=== PATIENT | male | born 1965 | race Caucasian/White ===

== ENCOUNTER 2016-04-30 12:42 | Inpatient (IN) | payer MEDICAID ==
[~2016-04-30] VITALS: Ht 165.1 cm; Wt 79.4 kg
[2016-04-30] MEDS ORDERED: ASPI81TA2 PO (12:54)
[2016-04-30 14:13] LABS: BASOPHILS % (AUTO) 0.7 % (0.0-2.0); HEMATOCRIT 45.9 % (41-53); HEMOGLOBIN 15.1 g/dL (13.5-17.5); LYMPHOCYTES # (AUTO) 1.8 K/uL (1.0-4.8); LYMPHOCYTES % (AUTO) 20.6 % (22.0-44.0); MEAN CORPUSCULAR HGB CONC 32.8 G/dL (31.0-37.0); MEAN CORPUSCULAR VOLUME 88 fL (80-100); MONOCYTES # (AUTO) 0.6 K/uL (0.1-1.0); MONOCYTES % (AUTO) 6.9 % (2.0-9.0); NEUTROPHILS # (AUTO) 6.1 K/uL (1.8-7.7); NEUTROPHILS % (AUTO) 70.8 % (40.0-70.0); PLATELET COUNT (AUTO) 214 K/uL (150-450); RED BLOOD CELL COUNT(AUTO) 5.19 MIL/uL (4.50-5.90); RED CELL DISTRIBUTION WIDTH 13.3 % (11.5-14.5); WHITE BLOOD COUNT (AUTO) 8.7 K/uL (4.5-11.0)
[2016-04-30 14:24] LABS: ANION GAP 12 mmol/L (8-16); CALCIUM, TOTAL 9.5 mg/dL (8.8-10.5); CARBON DIOXIDE 25 mmol/L (22-29); CHLORIDE 101 mmol/L (98-107); GLOMERULAR FILTR. RATE CALC > 60 mL/min (>60); POTASSIUM 3.8 mmol/L (3.5-5.1); SODIUM SERUM 138 mmol/L (136-145); UREA NITROGEN, BLOOD 16 mg/dL (7-18)
[2016-04-30 14:29] LABS: ALANINE AMINOTRANSFERASE 180 U/L (12-78); ALBUMIN 4.3 g/dL (3.4-5.0); ASPARTATE AMINOTRANSFERASE 44 U/L (15-37); BILIRUBIN,TOTAL 0.3 mg/dL (0.1-1.0); TOTAL PROTEIN, SERUM 8.1 g/dL (6.4-8.2)
[2016-04-30] MEDS ORDERED: NITROGLYCERIN 2% (1 GM=INCH) PACKET TP ONE (16:00)
[2016-04-30] MEDS ORDERED: ACETAMINOPHEN 325 MG TABLET PO PRN ×2 (16:45→20:15)
[2016-04-30 20:07] VITALS: BP 137/84
[2016-04-30] MEDS ORDERED: SIMVASTATIN 20 MG TABLET PO SCH (20:15)
[2016-04-30] MEDS ORDERED: OxyCODONE HCL/ACETAMINOPHEN 5-325 MG TABLET PO PRN (20:15)
[2016-04-30] MEDS ORDERED: MAGNESIUM HYDROXIDE SUSPENSION 30 ML UDCUP PO PRN (20:15)
[2016-04-30] MEDS ORDERED: ZOLPIDEM TARTRATE 5 MG TABLET PO PRN (20:15)
[2016-04-30] MEDS: DOCUSATE SODIUM 100 MG CAPSULE PO SCH (20:57)
[2016-04-30] MEDS: ASPIRIN 81 MG CHEWABLE TABLET PO SCH (20:57)
[2016-04-30] MEDS: PANTOPRAZOLE SODIUM 40 MG DR TABLET PO SCH (20:57)
[2016-04-30] MEDS ORDERED: INFLUENZA VIRUS VACCINE QVS 2016-17 (3YR+)/PF 60 MCG/0.5 ML SYRINGE IM ONE (22:30)
[2016-05-01] VITALS (16 sets, daily range): BP systolic 117–149; BP diastolic 59–92
[2016-05-01] MEDS ORDERED: HEPARIN SODIUM 25000 UNITS/D5W 250 ML IV PRN (01:44)
[2016-05-01] MEDS ORDERED: HEPARIN SODIUM,PORCINE 5,000 UNITS/ML VIAL IVP ONE ×3 (01:45→13:30)
[2016-05-01] MEDS ORDERED: HEPARIN SODIUM,PORCINE 5,000 UNITS/ML VIAL IVP PRN ×2 (01:45)
[2016-05-01 02:50] LABS: INR 1.1 (0.9-1.1); PROTHROMBIN TIME 11.4 SEC (9.4-11.6)
[2016-05-01] MEDS ORDERED: METOPROLOL TARTRATE 25 MG TABLET PO SCH (09:00)
[2016-05-01] MEDS ORDERED: LISINOPRIL 5 MG TABLET PO SCH (09:00)
[2016-05-01] MEDS ORDERED: SIMVASTATIN 20 MG TABLET PO SCH (09:00)
[2016-05-01] MEDS: PANTOPRAZOLE SODIUM 40 MG DR TABLET PO SCH (09:02)
[2016-05-01] MEDS: DOCUSATE SODIUM 100 MG CAPSULE PO SCH ×2 (09:02→21:11)
[2016-05-01] MEDS: ASPIRIN 81 MG CHEWABLE TABLET PO SCH (09:54)
[2016-05-01] MEDS ORDERED: SODIUM BICARBONATE 50 MEQ/50 ML VIAL ONE (12:13)
[2016-05-01] MEDS ORDERED: LIDOCAINE HCL/PF 1% 30 ML VIAL ONE (12:13)
[2016-05-01] MEDS ORDERED: HEPARIN SODIUM 1000 UNITS/NS 1,000 ML ONE (12:14)
[2016-05-01] MEDS ORDERED: IOHEXOL 300 MG/ML 150 ML VIAL ONE (12:14)
[2016-05-01] MEDS ORDERED: HEPARIN SODIUM 2,000 UNITS in HEPARIN SODIUM 1000 UNITS/NS 1,000 ML IARTER ONE (12:54)
[2016-05-01] MEDS ORDERED: SODIUM CHLORIDE 0.9% 500 ML IV ONE (12:54)
[2016-05-01] MEDS ORDERED: IOHEXOL 300 MG/ML 150 ML VIAL IARTER ONE (13:00)
[2016-05-01] MEDS ORDERED: ASPIRIN 325 MG TABLET PO ONE (13:00)
[2016-05-01] MEDS ORDERED: TICAGRELOR 90 MG TABLET PO ONE (13:00)
[2016-05-01] MEDS ORDERED: LIDOCAINE 1% 30 ML/SOD BICARB 8.4% 4 ML SQ ONE (13:00)
[2016-05-01] MEDS ORDERED: IOHEXOL 300 MG/ML 100 ML VIAL ONE ×2 (13:02→13:32)
[2016-05-01] MEDS ORDERED: IOHEXOL 300 MG/ML 50 ML VIAL ONE (13:02)
[2016-05-01] MEDS ORDERED: VERAPAMIL HCL 2.5 MG/ML 2 ML VIAL ONE (13:02)
[2016-05-01] MEDS ORDERED: NITROGLYCERIN 50 MG/D5% WATER 250 ML ONE (13:03)
[2016-05-01] MEDS ORDERED: TICAGRELOR 90 MG TABLET ONE (13:05)
[2016-05-01] MEDS ORDERED: ASPIRIN 81 MG CHEWABLE TABLET ONE (13:05)
[2016-05-01] MEDS ORDERED: MIDAZOLAM HCL 2 MG/2 ML VIAL ONE (13:14)
[2016-05-01] MEDS ORDERED: FentaNYL CITRATE-PF 100 MCG/2 ML VIAL ONE (13:14)
[2016-05-01] MEDS ORDERED: MIDAZOLAM HCL 2 MG/2 ML VIAL IVP ONE (13:30)
[2016-05-01] MEDS ORDERED: FentaNYL CITRATE-PF 100 MCG/2 ML VIAL IVP ONE (13:30)
[2016-05-01] MEDS ORDERED: IOHEXOL 300 MG/ML 100 ML VIAL IARTER ONE ×2 (13:45)
[2016-05-01] MEDS ORDERED: NITROGLYCERIN/D5W 50 MG/250 ML IV BOTTLE ICOR ONE (13:45)
[2016-05-01] MEDS ORDERED: VERAPAMIL HCL 2.5 MG/ML 2 ML VIAL ICOR ONE (13:45)
[2016-05-01] MEDS ORDERED: IOHEXOL 300 MG/ML 50 ML VIAL IARTER ONE (13:45)
[2016-05-01 17:48] LABS: CREATINE KINASE MB 6.5 ng/mL (0-5)
[2016-05-01] MEDS: LISINOPRIL 10 MG TABLET PO SCH (21:11)
[2016-05-01] MEDS: TICAGRELOR 90 MG TABLET PO SCH (21:11)
[2016-05-01] MEDS: ATORVASTATIN CALCIUM 40 MG TABLET PO SCH (21:11)
[2016-05-01] MEDS: METOPROLOL SUCCINATE 25 MG ER TABLET PO SCH (21:11)
[2016-05-02] VITALS: BP 114/66
[2016-05-02 04:00] VITALS: BP 110/66
[2016-05-02 06:44] LABS: ALANINE AMINOTRANSFERASE 176 U/L (12-78); ALBUMIN 3.9 g/dL (3.4-5.0); ANION GAP 10 mmol/L (8-16); ASPARTATE AMINOTRANSFERASE 51 U/L (15-37); BILIRUBIN,TOTAL 0.8 mg/dL (0.1-1.0); CALCIUM, TOTAL 9.1 mg/dL (8.8-10.5); CARBON DIOXIDE 26 mmol/L (22-29); CHLORIDE 103 mmol/L (98-107); CHOL/HDL RATIO 6.1 (4.2-7.3); CREATINE KINASE MB 2.8 ng/mL (0-5); CREATINE KINASE, TOTAL 112 U/L (39-308); CREATININE 0.97 mg/dL (0.60-1.30); GLOMERULAR FILTR. RATE CALC > 60 mL/min (>60); POTASSIUM 4.3 mmol/L (3.5-5.1); SODIUM SERUM 139 mmol/L (136-145); TOTAL PROTEIN, SERUM 7.6 g/dL (6.4-8.2); UREA NITROGEN, BLOOD 14 mg/dL (7-18)
[2016-05-02 06:48] LABS: HEMOGLOBIN A1C 6.5 % (4.5-6.2)
[2016-05-02 08:00] VITALS: BP 113/69
[2016-05-02] MEDS: PANTOPRAZOLE SODIUM 40 MG DR TABLET PO SCH (08:47)
[2016-05-02] MEDS: DOCUSATE SODIUM 100 MG CAPSULE PO SCH ×2 (08:47→20:15)
[2016-05-02] MEDS: ASPIRIN 81 MG CHEWABLE TABLET PO SCH (08:47)
[2016-05-02] MEDS: TICAGRELOR 90 MG TABLET PO SCH ×2 (08:47→20:15)
[2016-05-02 12:00] VITALS: BP 135/92
[2016-05-02 16:00] VITALS: BP 118/69
[2016-05-02 20:00] VITALS: BP 114/68
[2016-05-02] MEDS: LISINOPRIL 10 MG TABLET PO SCH (20:15)
[2016-05-02] MEDS: ATORVASTATIN CALCIUM 40 MG TABLET PO SCH (20:15)
[2016-05-02] MEDS: METOPROLOL SUCCINATE 25 MG ER TABLET PO SCH (20:15)
[2016-05-03] VITALS: BP 108/63
[2016-05-03 04:00] VITALS: BP 111/78
[2016-05-03 06:25] LABS: ALANINE AMINOTRANSFERASE 157 U/L (12-78); ANION GAP 6 mmol/L (8-16); ASPARTATE AMINOTRANSFERASE 38 U/L (15-37); BILIRUBIN,TOTAL 0.8 mg/dL (0.1-1.0); CALCIUM, TOTAL 9.5 mg/dL (8.8-10.5); CARBON DIOXIDE 28 mmol/L (22-29); CHLORIDE 107 mmol/L (98-107); CREATININE 1.04 mg/dL (0.60-1.30); GLOMERULAR FILTR. RATE CALC > 60 mL/min (>60); POTASSIUM 5.4 mmol/L (3.5-5.1); SODIUM SERUM 141 mmol/L (136-145); UREA NITROGEN, BLOOD 16 mg/dL (7-18)
[2016-05-03 06:43] LABS: BASOPHILS % (AUTO) 0.4 % (0.0-2.0); EOSINOPHILS % (AUTO) 3.1 % (1.0-6.0); HEMATOCRIT 48.9 % (41-53); HEMOGLOBIN 15.9 g/dL (13.5-17.5); LYMPHOCYTES # (AUTO) 2.4 K/uL (1.0-4.8); LYMPHOCYTES % (AUTO) 26.2 % (22.0-44.0); MEAN CORPUSCULAR HEMOGLOBIN 29.2 pg (26.0-34.0); MEAN CORPUSCULAR HGB CONC 32.5 G/dL (31.0-37.0); MEAN CORPUSCULAR VOLUME 90 fL (80-100); MONOCYTES # (AUTO) 0.9 K/uL (0.1-1.0); MONOCYTES % (AUTO) 10.1 % (2.0-9.0); NEUTROPHILS # (AUTO) 5.5 K/uL (1.8-7.7); NEUTROPHILS % (AUTO) 60.2 % (40.0-70.0); PLATELET COUNT (AUTO) 224 K/uL (150-450); RED BLOOD CELL COUNT(AUTO) 5.45 MIL/uL (4.50-5.90); RED CELL DISTRIBUTION WIDTH 13.5 % (11.5-14.5); WHITE BLOOD COUNT (AUTO) 9.1 K/uL (4.5-11.0)
[2016-05-03 08:00] VITALS: BP 124/62
[2016-05-03] MEDS: DOCUSATE SODIUM 100 MG CAPSULE PO SCH ×2 (08:44→21:45)
[2016-05-03] MEDS: TICAGRELOR 90 MG TABLET PO SCH ×2 (08:44→21:46)
[2016-05-03] MEDS: PANTOPRAZOLE SODIUM 40 MG DR TABLET PO SCH (08:44)
[2016-05-03] MEDS: ASPIRIN 81 MG CHEWABLE TABLET PO SCH (08:44)
[2016-05-03] MEDS ORDERED: 0.9% SODIUM CHLORIDE 10 ML SYRINGE IVP PRN (10:30)
[2016-05-03 11:06] VITALS: BP 122/81
[2016-05-03 15:52] VITALS: BP 114/72
[2016-05-03 19:41] VITALS: BP 135/79
[2016-05-03] MEDS: METOPROLOL SUCCINATE 25 MG ER TABLET PO SCH (21:45)
[2016-05-03] MEDS: ATORVASTATIN CALCIUM 40 MG TABLET PO SCH (21:46)
[2016-05-03] MEDS: LISINOPRIL 10 MG TABLET PO SCH (21:46)
[2016-05-04] VITALS (12 sets, daily range): BP systolic 108–132; BP diastolic 57–82
[2016-05-04 06:40] LABS: BASOPHILS % (AUTO) 0.4 % (0.0-2.0); EOSINOPHILS % (AUTO) 2.8 % (1.0-6.0); HEMATOCRIT 48.8 % (41-53); HEMOGLOBIN 16.2 g/dL (13.5-17.5); LYMPHOCYTES % (AUTO) 20.6 % (22.0-44.0); MEAN CORPUSCULAR HEMOGLOBIN 29.3 pg (26.0-34.0); MEAN CORPUSCULAR HGB CONC 33.1 G/dL (31.0-37.0); MEAN CORPUSCULAR VOLUME 89 fL (80-100); MONOCYTES # (AUTO) 0.6 K/uL (0.1-1.0); MONOCYTES % (AUTO) 6.6 % (2.0-9.0); NEUTROPHILS # (AUTO) 6.8 K/uL (1.8-7.7); NEUTROPHILS % (AUTO) 69.6 % (40.0-70.0); PLATELET COUNT (AUTO) 216 K/uL (150-450); RED BLOOD CELL COUNT(AUTO) 5.51 MIL/uL (4.50-5.90); RED CELL DISTRIBUTION WIDTH 13.6 % (11.5-14.5); WHITE BLOOD COUNT (AUTO) 9.7 K/uL (4.5-11.0)
[2016-05-04 07:01] LABS: ALANINE AMINOTRANSFERASE 156 U/L (12-78); ALBUMIN 3.9 g/dL (3.4-5.0); ANION GAP 10 mmol/L (8-16); ASPARTATE AMINOTRANSFERASE 42 U/L (15-37); BILIRUBIN,TOTAL 0.8 mg/dL (0.1-1.0); CALCIUM, TOTAL 9.3 mg/dL (8.8-10.5); CARBON DIOXIDE 25 mmol/L (22-29); CHLORIDE 101 mmol/L (98-107); CREATININE 1.06 mg/dL (0.60-1.30); GLOMERULAR FILTR. RATE CALC > 60 mL/min (>60); POTASSIUM 5.1 mmol/L (3.5-5.1); SODIUM SERUM 136 mmol/L (136-145); UREA NITROGEN, BLOOD 18 mg/dL (7-18)
[2016-05-04] MEDS: ASPIRIN 81 MG CHEWABLE TABLET PO SCH ×2 (09:00→16:09)
[2016-05-04] MEDS: PANTOPRAZOLE SODIUM 40 MG DR TABLET PO SCH (09:00)
[2016-05-04] MEDS: DOCUSATE SODIUM 100 MG CAPSULE PO SCH ×2 (09:00→22:10)
[2016-05-04] MEDS: TICAGRELOR 90 MG TABLET PO SCH ×2 (09:00→22:10)
[2016-05-04] MEDS ORDERED: VERAPAMIL HCL 2.5 MG/ML 2 ML VIAL ONE (12:02)
[2016-05-04] MEDS ORDERED: HEPARIN SODIUM 1000 UNITS/NS 1,000 ML ONE (12:03)
[2016-05-04] MEDS ORDERED: LIDOCAINE HCL/PF 1% 30 ML VIAL ONE (12:03)
[2016-05-04] MEDS ORDERED: SODIUM BICARBONATE 50 MEQ/50 ML VIAL ONE (12:03)
[2016-05-04] MEDS ORDERED: IOHEXOL 300 MG/ML 50 ML VIAL ONE (12:03)
[2016-05-04] MEDS ORDERED: IOHEXOL 300 MG/ML 100 ML VIAL ONE ×2 (12:03→13:04)
[2016-05-04] MEDS ORDERED: NITROGLYCERIN 50 MG/D5% WATER 250 ML ONE (12:03)
[2016-05-04] MEDS ORDERED: FentaNYL CITRATE-PF 100 MCG/2 ML VIAL ONE (12:25)
[2016-05-04] MEDS ORDERED: MIDAZOLAM HCL 2 MG/2 ML VIAL ONE ×2 (12:26)
[2016-05-04] MEDS ORDERED: TICAGRELOR 90 MG TABLET ONE (12:41)
[2016-05-04] MEDS ORDERED: TICAGRELOR 90 MG TABLET PO ONE (13:00)
[2016-05-04] MEDS ORDERED: FentaNYL CITRATE-PF 100 MCG/2 ML VIAL IVP ONE (13:00)
[2016-05-04] MEDS ORDERED: IOHEXOL 300 MG/ML 100 ML VIAL IARTER ONE (13:00)
[2016-05-04] MEDS ORDERED: NITROGLYCERIN/D5W 50 MG/250 ML IV BOTTLE ICOR ONE ×2 (13:00→13:30)
[2016-05-04] MEDS ORDERED: VERAPAMIL HCL 2.5 MG/ML 2 ML VIAL ICOR ONE ×2 (13:00→13:30)
[2016-05-04] MEDS ORDERED: IOHEXOL 300 MG/ML 50 ML VIAL IARTER ONE (13:00)
[2016-05-04] MEDS ORDERED: SODIUM CHLORIDE 0.9% 500 ML IV ONE (13:00)
[2016-05-04] MEDS ORDERED: HEPARIN SODIUM,PORCINE 5,000 UNITS/ML VIAL IVP ONE ×2 (13:00)
[2016-05-04] MEDS ORDERED: MIDAZOLAM HCL 2 MG/2 ML VIAL IVP ONE (13:00)
[2016-05-04] MEDS ORDERED: LIDOCAINE 1% 30 ML/SOD BICARB 8.4% 4 ML SQ ONE (13:00)
[2016-05-04] MEDS ORDERED: HEPARIN SODIUM 1000 UNITS/NS 1,000 ML IARTER ONE (13:00)
[2016-05-04 14:46] LABS: CREATINE KINASE, TOTAL 52 U/L (39-308)
[2016-05-04] MEDS: ATORVASTATIN CALCIUM 40 MG TABLET PO SCH (22:10)
[2016-05-04] MEDS: METOPROLOL SUCCINATE 25 MG ER TABLET PO SCH (22:10)
[2016-05-04] MEDS: LISINOPRIL 10 MG TABLET PO SCH (22:10)
[2016-05-05] VITALS (7 sets, daily range): BP systolic 108–140; BP diastolic 58–85
[2016-05-05 05:36] LABS: BASOPHILS % (AUTO) 0.4 % (0.0-2.0); EOSINOPHILS % (AUTO) 4.2 % (1.0-6.0); HEMATOCRIT 47.3 % (41-53); HEMOGLOBIN 15.6 g/dL (13.5-17.5); LYMPHOCYTES # (AUTO) 1.8 K/uL (1.0-4.8); LYMPHOCYTES % (AUTO) 20.8 % (22.0-44.0); MEAN CORPUSCULAR HEMOGLOBIN 29.1 pg (26.0-34.0); MEAN CORPUSCULAR VOLUME 88 fL (80-100); MONOCYTES # (AUTO) 0.6 K/uL (0.1-1.0); MONOCYTES % (AUTO) 7.2 % (2.0-9.0); NEUTROPHILS % (AUTO) 67.4 % (40.0-70.0); PLATELET COUNT (AUTO) 225 K/uL (150-450); RED BLOOD CELL COUNT(AUTO) 5.36 MIL/uL (4.50-5.90); WHITE BLOOD COUNT (AUTO) 8.9 K/uL (4.5-11.0)
[2016-05-05 05:53] LABS: ALANINE AMINOTRANSFERASE 148 U/L (12-78); ALBUMIN 3.7 g/dL (3.4-5.0); ANION GAP 10 mmol/L (8-16); ASPARTATE AMINOTRANSFERASE 42 U/L (15-37); BILIRUBIN,TOTAL 0.8 mg/dL (0.1-1.0); CALCIUM, TOTAL 9.2 mg/dL (8.8-10.5); CARBON DIOXIDE 25 mmol/L (22-29); CHLORIDE 102 mmol/L (98-107); CREATINE KINASE, TOTAL 54 U/L (39-308); CREATININE 0.93 mg/dL (0.60-1.30); GLOMERULAR FILTR. RATE CALC > 60 mL/min (>60); POTASSIUM 4.7 mmol/L (3.5-5.1); SODIUM SERUM 137 mmol/L (136-145); TOTAL PROTEIN, SERUM 7.8 g/dL (6.4-8.2); UREA NITROGEN, BLOOD 20 mg/dL (7-18)
[2016-05-05] MEDS: DOCUSATE SODIUM 100 MG CAPSULE PO SCH ×2 (08:02→21:41)
[2016-05-05] MEDS: ASPIRIN 81 MG CHEWABLE TABLET PO SCH (08:02)
[2016-05-05] MEDS: TICAGRELOR 90 MG TABLET PO SCH ×2 (08:02→21:40)
[2016-05-05] MEDS: PANTOPRAZOLE SODIUM 40 MG DR TABLET PO SCH (08:02)
[2016-05-05] MEDS: LISINOPRIL 10 MG TABLET PO SCH (21:40)
[2016-05-05] MEDS: METOPROLOL SUCCINATE 25 MG ER TABLET PO SCH (21:40)
[2016-05-05] MEDS: ATORVASTATIN CALCIUM 40 MG TABLET PO SCH (21:41)
[2016-05-06] VITALS: BP 122/76
[2016-05-06 04:00] VITALS: BP 131/72
[2016-05-06 08:00] VITALS: BP 119/69
[2016-05-06] MEDS: TICAGRELOR 90 MG TABLET PO SCH (09:05)
[2016-05-06] MEDS: PANTOPRAZOLE SODIUM 40 MG DR TABLET PO SCH (09:05)
[2016-05-06] MEDS: DOCUSATE SODIUM 100 MG CAPSULE PO SCH (09:05)
[2016-05-06] MEDS: ASPIRIN 81 MG CHEWABLE TABLET PO SCH (09:05)
[2016-05-06 12:20] VITALS: BP 96/44
== END 2016-05-06 16:04 | disposition home or self-care (01) | DRG 246 ==
LOC: EMS 12:46 → 5S 18:16 → UNDOADMIN 18:16 → ICU 05-01 14:45 → 5S 05-01 14:45 → UNDOADMIN 05-03 10:31 → 5N 05-03 10:31 → ICU 05-03 10:31 → 5N 05-04 13:59 → ICU 05-04 13:59 → UNDODISIN 05-06 16:04
PROVIDERS: ADMIT Internal Medicine; ATTEND Internal Medicine
PROC: 027037Z Dilation of Coronary Artery, One Artery with Four or More Drug-eluting Intraluminal Devices, Percutaneous Approach (ICD-10-PCS; principal; 2016-05-01)
PROC: 4A023N7 Measurement of Cardiac Sampling and Pressure, Left Heart, Percutaneous Approach (ICD-10-PCS; 2016-05-01)
PROC: B2111ZZ Fluoroscopy of Multiple Coronary Arteries using Low Osmolar Contrast (ICD-10-PCS; 2016-05-01)
PROC: B2151ZZ Fluoroscopy of Left Heart using Low Osmolar Contrast (ICD-10-PCS; 2016-05-01)
PROC: 027135Z Dilation of Coronary Artery, Two Arteries with Two Drug-eluting Intraluminal Devices, Percutaneous Approach (ICD-10-PCS; 2016-05-04)
DX: I21.4 Non-ST elevation (NSTEMI) myocardial infarction (principal); I10 Essential (primary) hypertension; I25.10 Atherosclerotic heart disease of native coronary artery without angina pectoris; R73.03 Prediabetes; E78.5 Hyperlipidemia, unspecified; E78.00 Pure hypercholesterolemia, unspecified; Z79.82 Long term (current) use of aspirin; Z82.49 Family history of ischemic heart disease and other diseases of the circulatory system; Z82.3 Family history of stroke; Z28.21 Immunization not carried out because of patient refusal
CPT/HCPCS: 83036; 87081; 92920; 92921; 92928; 92981; 93005; 93306; 99285; J1644; J2250; J3010; J3490; Q9967